=== PATIENT | female | born 1995 | race African-American/Black ===

== ENCOUNTER 2016-10-24 06:46 | Inpatient (IN) ==
[2016-10-24] MEDS ORDERED: BUTORPHANOL 2 MG/ML VIAL IV PRN (07:15)
[2016-10-24] MEDS ORDERED: ONDANSETRON 4 MG/2 ML VIAL IV PRN ×3 (07:15→20:00)
[2016-10-24] MEDS ORDERED: OXYTOCIN/LR 20 UNIT/1,000 ML BAG IV SCH (07:30)
[2016-10-24 07:37] LABS: Basophils % 0.2 % (0.0-0.8); Eosinophils # 0.2 10*3/uL (0.0-0.87); Eosinophils % 2.3 % (0.00-10.9); Hematocrit 33.6 VOL% (35.7-47.0); Hemoglobin 10.7 GM/DL (12.0-16.0); Immature Granulocytes % 0.5 %; Immature Granulocytes Absolute 0.04 #; Lymphocytes # 1.8 10*3/uL (1.4-4.0); Lymphocytes % 21.6 % (21.3-54.2); Mean Corpuscular HGB Conc 31.8 GM/DL (32-36); Mean Corpuscular Hemoglobin 26 PG (27-34); Mean Corpuscular Volume 80.8 FL (87-102); Mean Platelet Volume 10.6 FL (9.6-12.0); Monocytes # 0.9 10*3/uL (0.11-0.8); Monocytes % 10.3 % (1.7-12.7); Neutrophils # 5.5 10*3/uL (1.4-7.4); Neutrophils % 65.1 % (38.7-73.9); Platelet Count 224 T/CUMM (130-400); Red Blood Count 4.16 MC/CUMM (3.8-5.5); Red Cell Distribution Width 14.6 % (9.3-17.3); White Blood Count 8.5 T/CUMM (4-12)
[2016-10-24] MEDS: LACTATED RINGERS 1,000 ML IV SCH ×2 (07:45→15:48)
[2016-10-24 08:05] LABS: Alanine Aminotransferase 11 U/L (13-56); Albumin 2.4 G/DL (3.4-5.0); Alkaline Phosphatase 133 U/L (45-117); Aspartate Amino Transferase 9 U/L (0-37); Bilirubin,Total < 0.39 MG/DL (0.2-1.0); Blood Urea Nitrogen 6 MG/DL (7-18); Calcium 8.2 MG/DL (8.5-10.1); Glucose 98 MG/DL (74-106); Osmolality,Calculated 283.8 MOS/KG (273-304); Potassium 4.1 MMOL/L (3.5-5.1); Sodium 144 MMOL/L (136-145); Total Protein 6.3 G/DL (6.4-8.3)
[2016-10-24] MEDS ORDERED: AMPICILLIN INJ 2,000 MG in SODIUM CHLORIDE 0.9% 100 ML IV ONE (08:33)
[2016-10-24] MEDS ORDERED: PROMETHAZINE 25 MG/1 ML VIAL IM ONE (09:55)
[2016-10-24] MEDS ORDERED: diphenhydrAMINE 50 MG/1 ML VIAL IV PRN ×3 (09:55→19:34)
[2016-10-24] MEDS ORDERED: CITRIC ACID/SODIUM CITRATE 30 ML UDCUP PO ONE (09:55)
[2016-10-24] MEDS ORDERED: fentaNYL 2 MCG/ROPIV 0.2% EPID 150 ML EPIDURAL SCH (09:55)
[2016-10-24] MEDS ORDERED: hydrOXYzine HCL 25 MG/1 ML VIAL IM PRN (09:55)
[2016-10-24] MEDS ORDERED: FAMOTIDINE 20 MG/2 ML VIAL IV ONE (09:55)
[2016-10-24] MEDS ORDERED: ePHEDrine 50 MG/ML AMP IV PRN (09:55)
[2016-10-24] MEDS ORDERED: LACTATED RINGERS 1,000 ML IV ONE (09:55)
--- NOTE | 2016-10-24 09:59 | OB/GYN History & Physical ---
History of Present Illness Chief complaint: In for elective induction of labor due to term . History of present illness: Ms. Benitez is a 21 year old female who is a primigravida who presented to the labor and delivery for elective induction of labor due to term . Her NANCY is 10/31/2016 point estimated gestational age of 39 weeks. The patient received her care through the [facility] in the [facility]. She received routine care throughout. Her course was uneventful. labs: She is AB+, rubella is nonimmune, serology is nonreactive, hepatitis B negative, HIV negative, GBS culture positive. Review of systems as noted with exception of above. Home Medications Medication Instructions Recorded Confirmed Type Vit No.124/Iron/FA 1 tablet PO DAILY 10/10/16 10/24/16 History [ Vitamin Tablet] Ferrous Sulfate, Dried [Iron] 1 tablet PO DAILY 10/24/16 10/24/16 History Allergies Allergy/AdvReac Type Severity Reaction Status Date / Time No Known Allergies Allergy Verified 10/10/16 17:45 12 point system: reviewed and no additional remarkable complaints except as stated Medical,Surgical,& Family Hx - Medical History Medical History: noncontributory - Surgical History Surgical History: noncontributory - Family History Family History: Reports;: Family Diabetes (GRANDMOTHER MOM), Family Hypertension (MOTEHR FATHER) Denies;: Family Anesthesia Reaction, Family Cancer, Family Heart Disease, Family Hematology, Family Psychiatric Problems, Family Stroke - Social History Smoking Status: Never smoker Frequency of Alcohol Use: None Type of Drug Use: None Marital Status: Single Lives With:: Parent Functional capacity: independent ambulation Exam [employer] - Constitutional Vitals: Vital Signs Temp Pulse Resp BP Pulse Ox 10/24/16 08:00 98.4 F 77 20 121/77 97 General appearance: no acute distress - Antepartum / Post Antpartum Exam Cervix -Dilatation: 3-4 cm Effacement: 60% Station: -1 Rupture: Intact Presentation: Vtx Heart Rate: 140s Abdomen obstetrics: Present: bowel sounds normal Vagina: Present: normal moisture Uterus exam: Present: enlarged Anus/Rectum: Present: normal perianal skin - Neck Neck exam: Present: normal inspection - Respiratory Respiratory exam: Present: clear to auscultation bilaterally - Cardiovascular Cardiovascular exam: Present: regular rate and rhythm - GI/Abdominal GI/Abdominal exam: Present: normal bowel sounds, soft - Extremities Exam Extremities exam: Present: normal inspection - Neurological Exam Neurological exam: Present: alert, oriented X3 - Psychiatric Psychiatric exam: Present: normal affect, normal mood - Skin Skin exam: Present: normal color, warm Assessment and Plan (1) Term Status: Acute Assessment and plan: Admit IV fluids AROM IV Pitocin per protocol Epidural if desired Anticipate Current Visit: Yes Results - Labs CBC & BMP: 10/24/16 07:27 10/24/16 07:27
[2016-10-24] MEDS: AMPICILLIN INJ 1,000 MG in SODIUM CHLORIDE 0.9% 100 ML IV SCH ×2 (13:21→17:08)
[2016-10-24] MEDS ORDERED: OXYTOCIN 10 UNIT/ML VIAL IM ONE (18:42)
[2016-10-24] MEDS ORDERED: OXYTOCIN/LR 30 UNIT/1,000 ML BAG IV ONE (18:42)
[2016-10-24] MEDS ORDERED: OXYTOCIN 10 UNIT/ML VIAL ONE (18:48)
[2016-10-24] MEDS ORDERED: HYDROmorphone 2 MG/1 ML VIAL IV PRN (19:34)
[2016-10-24 19:46] LABS: Cord Arterial Blood HCO3 26.6 MMOL/L
[2016-10-24 19:48] LABS: Cord Venous Blood HCO3 22.1 MMOL/L; Cord Venous Blood PCO2 39.1 MMHG; Cord Venous Blood PO2 40.8 MMHG
--- NOTE | 2016-10-24 19:59 | Operative Note ---
Date of procedure: 10/24/16 Procedure: Preoperative diagnosis: Failure to progress Postoperative diagnosis: Same Anesthesia:[] Regional anesthesia Estimated blood loss: []300 mL Surgeon: Dr. Mayorga Findings: []Female , Apgars 9 at 1 minute and 9 at 5 minutes, weight is 6 lbs. 9 oz., baby was delivered in 1934 p.m., artificial rupture membranes was at 0915 a.m. Complications: None Procedure: Low transverse section The patient was taken to the operating suite heart tones were obtained prior to and after regional anesthesia was obtained. She was placed in supine position her abdomen was prepped and draped in usual manner for major abdominal surgery. Through an abdominal incision the skin, subcutaneous, fascial layer and peritoneal the abdomen was entered. The bladder flap was created and a low transverse incision was made.. Fluid was clear and normal amount X, Apgars, the placenta was delivered and sent to lab for further evaluation. Injected with intrauterine Pitocin. The first layer of the uterus was closed with #1 Vicryl in a continuous locking manner. Close to imbricate the first layer with #1 Vicryl. The peritoneum was approximated with #2-0 Vicryl.[] All the last sponges and instruments were accounted for 2.) #2-0 Vicryl. Fascia was approximated with #0-0 Maxon.. The skin was approximated with christin. She tolerated procedure well and was taken to recovery room in stable condition. Surgeon / Physician: Carly Mayorga Results - Labs CBC & BMP: 10/24/16 07:27 10/24/16 07:27 Discharge Plan - Discharge Medications No Action Ferrous Sulfate, Dried [Iron] 1 tablet PO DAILY Vit No.124/Iron/FA [ Vitamin Tablet] 1 tablet PO DAILY - Follow Up or Referral - Forms/Instructions
[2016-10-24] MEDS ORDERED: SIMETHICONE CHEW 80 MG TABLET PO PRN (20:00)
[2016-10-24] MEDS ORDERED: ACETAMINOPHEN 325 MG TABLET PO PRN (20:00)
[2016-10-24] MEDS ORDERED: MAGNESIUM HYDROXIDE SUSP 30 ML UDCUP PO PRN (20:00)
[2016-10-24] MEDS ORDERED: OXYTOCIN/LR 20 UNIT/1,000 ML BAG IV ONE (20:00)
[2016-10-24] MEDS ORDERED: LACTATED RINGERS 1,000 ML IV SCH ×2 (20:00)
[2016-10-24] MEDS ORDERED: SODIUM CHLORIDE 0.9% 1,000 ML IV SCH (20:00)
[2016-10-24] MEDS ORDERED: fentaNYL 100 MCG/2 ML VIAL ONE (20:13)
[2016-10-24] MEDS ORDERED: MIDAZOLAM 2 MG/2 ML VIAL ONE (20:14)
[2016-10-24] MEDS ORDERED: MORPHINE 10 MG/10 ML VIAL ONE (20:14)
--- NOTE | 2016-10-24 20:22 | Anesthesia ---
Anesthesia Post OP - Post Ansesthetic Evaluation Patient seen in post op: Yes Resp: within normal limits CV: within normal limits Mental: within normal limits Temp: within normal limits [id number]: within normal limits Nausea and Vomiting: within normal limits Pain: within normal limits
[2016-10-25] MEDS: DOCUSATE SODIUM 100 MG CAPSULE PO SCH ×3 (03:30→21:20)
[2016-10-25] MEDS ORDERED: RHO(D) IMMUNE GLOBULIN 300 MCG SYRINGE IM ONE (08:00)
[2016-10-25 08:27] LABS: Basophils % 0.2 % (0.0-0.8); Eosinophils % 0.4 % (0.00-10.9); Hematocrit 30.4 VOL% (35.7-47.0); Hemoglobin 9.9 GM/DL (12.0-16.0); Immature Granulocytes % 0.3 %; Immature Granulocytes Absolute 0.03 #; Lymphocytes # 0.9 10*3/uL (1.4-4.0); Lymphocytes % 9.7 % (21.3-54.2); Mean Corpuscular HGB Conc 32.6 GM/DL (32-36); Mean Corpuscular Hemoglobin 26 PG (27-34); Mean Platelet Volume 10.2 FL (9.6-12.0); Monocytes # 1.1 10*3/uL (0.11-0.8); Monocytes % 11.7 % (1.7-12.7); Neutrophils # 7.6 10*3/uL (1.4-7.4); Neutrophils % 77.7 % (38.7-73.9); Platelet Count 167 T/CUMM (130-400); Red Blood Count 3.85 MC/CUMM (3.8-5.5); Red Cell Distribution Width 14.6 % (9.3-17.3); White Blood Count 9.7 T/CUMM (4-12)
[2016-10-25] MEDS: FERROUS SULFATE 325 MG TABLET PO SCH (09:33)
[2016-10-25] MEDS: MULTIVITAMIN (PRENATAL) TABLET PO SCH (09:34)
[2016-10-25] MEDS: IBUPROFEN 800 MG TABLET PO PRN ×2 (10:48→21:15)
--- NOTE | 2016-10-25 13:12 | OB/GYN Progress Note ---
Assessment and Plan (1) Term Status: Acute Assessment and plan: Admit IV fluids AROM IV Pitocin per protocol Epidural if desired Anticipate Current Visit: Yes (2) S/P primary low transverse Status: Acute Assessment and plan: Initiate routine postop orders. Current Visit: Yes [employer] - PN: Subj Interval history: Stable with no complaints. Bonding well with . Exam [employer] - Constitutional Vitals: Vital Signs Temp Pulse Resp BP Pulse Ox 10/25/16 11:35 20 10/25/16 11:31 97.7 F 82 20 148/79 97 10/25/16 07:27 97.8 F 89 20 111/59 100 10/25/16 04:00 98.2 F 78 18 110/61 97 10/25/16 00:55 97.9 F 75 18 118/70 99 10/24/16 23:55 99.0 F 80 20 120/68 99 10/24/16 22:55 99.3 F 82 20 119/60 99 10/24/16 22:25 98.0 F 80 20 127/77 99 10/24/16 21:55 97.8 F 78 20 125/75 100 10/24/16 16:00 98.9 F 90 20 122/66 General appearance: no acute distress - Antepartum / Post Post Exam Breast: bilateral: normal Abdomen obstetrics: Present: bowel sounds normal Vagina: Present: discharge (light lochia rubra) Uterus exam: Present: enlarged Anus/Rectum: Present: normal perianal skin - Gyencological / Post Surgical Post Surgical Exam Lungs: bilateral: normal Chest: Normal S1, Normal S2 Extremities [employer]: Present: normal Abdomen obstetrics progress note: Present: normal appearance Incision OB: Present: normal, intact - Respiratory Respiratory exam: Present: clear to auscultation bilaterally - Cardiovascular Cardiovascular exam: Present: regular rate and rhythm - GI/Abdominal GI/Abdominal exam: Present: normal bowel sounds, soft - Extremities Exam Extremities exam: Present: normal inspection - Back Exam Back exam: Present: normal inspection - Neurological Exam Neurological exam: Present: alert, oriented X3 - Psychiatric Psychiatric exam: Present: normal affect, normal mood - Skin Skin exam: Present: normal color, warm Results - Labs CBC & BMP: 10/25/16 08:22 10/24/16 07:27
[2016-10-26] MEDS: IBUPROFEN 800 MG TABLET PO PRN (05:15)
[2016-10-26 07:35] VITALS: BP 106/60
[2016-10-26] MEDS: FERROUS SULFATE 325 MG TABLET PO SCH (09:02)
[2016-10-26] MEDS: MULTIVITAMIN (PRENATAL) TABLET PO SCH (09:02)
[2016-10-26] MEDS: DOCUSATE SODIUM 100 MG CAPSULE PO SCH (09:02)
--- NOTE | 2016-10-26 11:52 | Discharge Summary ---
Hospital Course - Hospital Course Hospital Course: Postop day #2 Subjectively doing very well, passing gas, voiding well, no severe abdominal pain. Incision sites intact Extremities a well with no limits and neurologically grossly intact Status post section We'll discharged today follow-up our office in 2 weeks Specialty Discharge - Follow Up or Referrals Discharge Plan - Discharge Data Condition at Discharge: Stable Discharge Diet: advance to your usual diet Activity: increase activity as tolerated Hygiene: may shower Driving: not until seen by doctor Contact your physician if you experience:: fever over 101, Shortness of breath, Bleeding - Discharge Medications New Ferrous Sulfate Tab [Feosol Original Tab] 325 mg PO DAILY #60 tablet HYDROcodone/ACETAMIN 5-325 [[place] 5-325] 2 tablet PO Q6H PRN #30 tablet PRN Reason: Pain Severe (8-10) Ibuprofen Tab [Motrin Tab] 800 mg PO Q8H PRN #60 tablet PRN Reason: Pain Severe (8-10) No Action Ferrous Sulfate, Dried [Iron] 1 tablet PO DAILY Vit No.124/Iron/FA [ Vitamin Tablet] 1 tablet PO DAILY - Follow Up or Referral - Forms/Instructions Instructions: Section (DC), Perineal Care (DC), Bleeding (DC) Exam - Constitutional Vitals: Period Temp Pulse Resp BP Sys/Dvais Pulse Ox Last 24 Hr 96.6 F-97.7 F 82-96 19-20 100-117/57-83 97-99 DS: Provider Date of admission: 10/24/16 06:46 Primary care physician: . No PCP Attending physician on admission: Carly Mayorga MD Consults: 10/24/16 07:17 Consult to Anesthesiology [CONS] Routine Consulting Provider: Reason for Anesthesiology: Epidural Consult Comment: Epidural for pain managment 10/24/16 20:00 Consult to High Wire Artist [CONS] Routine Consult High Wire Artist: Breast Feeding 10/25/16 09:01 Consult to Dietitian [CONS] Routine Reason for Dietitian: Dietary Consult Discharging clinician: Carly Mayorga MD
== END 2016-10-26 14:15 | disposition home or self-care (01) | DRG 766 ==
LOC: N.LD 06:46 → N.OB 22:16
PROVIDERS: ADMIT Obstetrics & Gynecology; ATTEND Obstetrics & Gynecology
PROC: LDCSECT (ICD-10-PCS; 2016-10-24 19:02)